=== PATIENT | male | born 1985 | race Caucasian/White ===

== ENCOUNTER 2021-07-23 08:27 | Outpatient (CLI) | payer SELFPAY ==
[2021-07-23 09:41] LABS: HF Add Manual Diff No
[2021-07-23 09:45] LABS: Basophils # 0.1 10^3/uL (0.0-0.1); Basophils % 0.8 %; Eosinophils # 0.2 10^3/uL (0.0-0.8); Eosinophils % 1.9 %; Hematocrit 47.5 % (42.0-52.0); Hemoglobin 16.4 g/dL (11.7-16.6); Lymphocytes % 33.7 %; Mean Corpuscular HGB Conc 34.5 g/dL (30.0-36.0); Mean Corpuscular Hemoglobin 31.8 pg (28.0-34.0); Mean Corpuscular Volume 92.2 fl (80-94); Mean Platelet Volume 9.6 fL (7.4-10.4); Monocytes # 0.5 10^3/uL (0.2-0.9); Monocytes % 5.2 %; Neutrophils # 5.21 10^3/uL (1.8-7.7); Neutrophils % 57.6 %; Nucleated Red Blood Cells % 0 %; Platelet Count 295 10^3/cmm (130-400); Red Blood Count 5.15 10^6/uL (4.1-5.3); Red Cell Distribution Width 13.2 % (12.1-15.1)
[2021-07-23 10:49] LABS: Alanine Aminotransferase 24 U/L (0-41); Albumin Level 4.7 g/dL (3.5-5.2); Alkaline Phosphatase 72 IU/L (40-130); Aspartate Amino Transferase 16 U/L (0-40); Blood Urea Nitrogen 16 mg/dL (6-20); Calcium 9.3 mg/dL (8.5-10.5); Carbon Dioxide 25 mmol/L (22-29); Chloride 103 mmol/L (98-107); Cholesterol 242 mg/dL (0-200); Globulin 2.6 g/dL (1.3-4.6); Glomerular Filtration Rate 109.4 mL/min (90-130); Glucose 114 mg/dL (65-115); HDL Cholesterol 41 mg/dL (60-100); Osmolality Calculated 292 mOsm/kg (285-295); Sodium 140 mmol/L (136-145); Total Bilirubin 0.3 mg/dL (0.15-1.2); Total Protein 7.3 g/dL (6.6-8.7); Triglycerides 502 mg/dL (0-150)
[2021-07-23 11:09] LABS: Estmated Average Glucose 100; Hemoglobin A1C 5.1 % (4.0-6.0)
[2021-07-23 11:27] LABS: LDL Cholesterol Direct 143 mg/dL (0-100)
== END 2021-07-23 08:28 | disposition home or self-care (01) ==
PROVIDERS: Visit Provider Dermatology
DX: Z01.89 Encounter for other specified special examinations (principal)
CPT/HCPCS: 83721

== ENCOUNTER 2021-10-15 07:50 | Outpatient (CLI) | payer SELFPAY ==
[2021-10-15 08:06] LABS: HF Add Manual Diff No
[2021-10-15 08:17] LABS: Basophils # 0.1 10^3/uL (0.0-0.1); Basophils % 0.9 %; Eosinophils # 0.1 10^3/uL (0.0-0.8); Eosinophils % 1.5 %; Hematocrit 47.1 % (42.0-52.0); Lymphocytes # 2.8 10^3/uL (0.8-4.8); Lymphocytes % 37.8 %; Mean Corpuscular Hemoglobin 31.4 pg (28.0-34.0); Mean Corpuscular Volume 92.5 fl (80-94); Mean Platelet Volume 9.5 fL (7.4-10.4); Monocytes # 0.5 10^3/uL (0.2-0.9); Monocytes % 6.5 %; Neutrophils # 3.94 10^3/uL (1.8-7.7); Neutrophils % 52.9 %; Nucleated Red Blood Cells % 0 %; Platelet Count 261 10^3/cmm (130-400); Red Blood Count 5.09 10^6/uL (4.1-5.3); Red Cell Distribution Width 12.4 % (12.1-15.1); White Blood Count 7.4 10^3/uL (4.0-10.0)
[2021-10-15 08:48] LABS: Alanine Aminotransferase 18 U/L (0-41); Albumin Level 4.6 g/dL (3.5-5.2); Alkaline Phosphatase 61 IU/L (40-130); Anion Gap 16.3 (5-19); Aspartate Amino Transferase 16 U/L (0-40); Blood Urea Nitrogen 15 mg/dL (6-20); Calcium 8.8 mg/dL (8.5-10.5); Carbon Dioxide 24 mmol/L (22-29); Chloride 106 mmol/L (98-107); Chol HDL Ratio 5.85 mg/dL (1.0-5.00); Cholesterol 234 mg/dL (0-200); Globulin 2.3 g/dL (1.3-4.6); Glomerular Filtration Rate 84.5 mL/min (90-130); Glucose 100 mg/dL (65-115); HDL Cholesterol 40 mg/dL (60-100); LDL Cholesterol Calculated 139 mg/dL (50-129); LDL HDL Ratio 3.48 RATIO (0.00-3.22); Osmolality Calculated 295 mOsm/kg (285-295); Potassium 4.3 mmol/L (3.5-5.1); Sodium 142 mmol/L (136-145); Thyroid Stimulating Hormone 1.67 uIU/mL (0.27-4.20); Total Bilirubin 0.3 mg/dL (0.15-1.2); Total Protein 6.9 g/dL (6.6-8.7); Triglycerides 277 mg/dL (0-150)
[2021-10-15 09:34] LABS: Estmated Average Glucose 103; Hemoglobin A1C 5.2 % (4.0-6.0)
== END 2021-10-15 07:51 | disposition home or self-care (01) ==
LOC: LAB 07:52
PROVIDERS: Visit Provider Dermatology
DX: Z01.89 Encounter for other specified special examinations (principal)

== ENCOUNTER 2022-01-14 09:05 | Outpatient (CLI) | payer SELFPAY ==
[2022-01-14 09:21] LABS: Basophils # 0.1 10^3/uL (0.0-0.1); Basophils % 0.8 %; Eosinophils # 0.2 10^3/uL (0.0-0.8); Eosinophils % 1.8 %; Hematocrit 48.1 % (42.0-52.0); Hemoglobin 16.2 g/dL (11.7-16.6); Lymphocytes # 3.4 10^3/uL (0.8-4.8); Lymphocytes % 39.3 %; Mean Corpuscular HGB Conc 33.7 g/dL (30.0-36.0); Mean Corpuscular Hemoglobin 30.8 pg (28.0-34.0); Mean Corpuscular Volume 91.4 fl (80-94); Mean Platelet Volume 9.2 fL (7.4-10.4); Monocytes # 0.5 10^3/uL (0.2-0.9); Neutrophils # 4.44 10^3/uL (1.8-7.7); Neutrophils % 51.7 %; Nucleated Red Blood Cells % 0 %; Platelet Count 266 10^3/cmm (130-400); Red Blood Count 5.26 10^6/uL (4.1-5.3); Red Cell Distribution Width 12.5 % (12.1-15.1); White Blood Count 8.6 10^3/uL (4.0-10.0)
[2022-01-14 09:40] LABS: Estmated Average Glucose 105; Hemoglobin A1C 5.3 % (4.0-6.0)
[2022-01-14 09:44] LABS: Alanine Aminotransferase 24 U/L (0-41); Albumin Level 4.6 g/dL (3.5-5.2); Alkaline Phosphatase 66 IU/L (40-130); Anion Gap 16.5 (5-19); Aspartate Amino Transferase 20 U/L (0-40); Blood Urea Nitrogen 17 mg/dL (6-20); Calcium 9.7 mg/dL (8.5-10.5); Carbon Dioxide 27 mmol/L (22-29); Chloride 104 mmol/L (98-107); Chol HDL Ratio 4.98 mg/dL (1.0-5.00); Cholesterol 214 mg/dL (0-200); Globulin 2.9 g/dL (1.3-4.6); Glomerular Filtration Rate 108.8 mL/min (90-130); Glucose 119 mg/dL (65-115); HDL Cholesterol 43 mg/dL (60-100); LDL Cholesterol Calculated 111 mg/dL (50-129); LDL HDL Ratio 2.58 RATIO (0.00-3.22); Osmolality Calculated 299 mOsm/kg (285-295); Potassium 4.5 mmol/L (3.5-5.1); Sodium 143 mmol/L (136-145); Total Bilirubin 0.4 mg/dL (0.15-1.2); Total Protein 7.5 g/dL (6.6-8.7); Triglycerides 298 mg/dL (0-150)
== END 2022-01-14 09:06 | disposition home or self-care (01) ==
PROVIDERS: Visit Provider Dermatology
DX: Z01.89 Encounter for other specified special examinations (principal)
CPT/HCPCS: 80053; 80061; 83036; 85025

== ENCOUNTER 2023-09-27 15:18 | Emergency (ER) | payer MEDICAID, SELFPAY ==
[2023-09-27 15:32] VITALS: BP 136/85; PULSE 69; TEMP 37; O2SAT 99; BMI 26.5
--- NOTE | 2023-09-27 17:34 | PC.NURSE ---
NURSE ASSUMED CARE AT 1730
[2023-09-27 17:40] VITALS: RESP 17
[2023-09-27] MEDS: ondansetron 2 mg/ML SDV 2 mL 4 MG IVP (17:40)
[2023-09-27] MEDS: fentaNYL 50 mcg/mL INJ 2mL IVP ×2 (17:40→18:35)
[2023-09-27] MEDS: sodium chloride 0.9% 1,000 ML 999 ML IV ×2 (17:41→18:39)
[2023-09-27 17:48] VITALS: PULSE 62; TEMP 36.9; O2SAT 99
[2023-09-27 17:50] LABS: Basophils # 0.1 10^3/uL (0.0-0.1); Basophils % 0.3 %; Eosinophils % 0.1 %; Hematocrit 46.6 % (37-53); Lymphocytes # 1.5 10^3/uL (0.8-4.8); Lymphocytes % 8.8 %; Mean Corpuscular HGB Conc 34.8 g/dL (30-55); Mean Corpuscular Hemoglobin 31.5 pg (27-33); Mean Corpuscular Volume 90.7 fl (82-101); Mean Platelet Volume 9.3 fL (7.4-10.4); Monocytes # 0.9 10^3/uL (0.2-0.9); Neutrophils % 85.5 %; Nucleated Red Blood Cells % 0 %; Platelet Count 267 10^3/cmm (157-399); Red Blood Count 5.14 10^6/uL (3.85-5.65); Red Cell Distribution Width 12.7 % (12.1-15.1); White Blood Count 17.44 10^3/uL (3.29-11.43)
--- NOTE | 2023-09-27 17:53 | CTR_ITS ---
PROCEDURE INFORMATION: Exam: CT Abdomen And Pelvis With Contrast Exam date and time: 09/27/2023 6:04 PM Age: 37 years old Clinical indication: Abdominal pain; Prior surgery; Surgery date: 6+ months; Surgery type: Inguinal hernia; Patient HX: Llq pain with n/v. Wbc of 17k. ; Additional info: Abd pain and leukocytosis TECHNIQUE: Imaging protocol: Computed tomography of the abdomen and pelvis with contrast. Radiation optimization: All CT scans at this facility use at least one of these dose optimization techniques: automated exposure control; mA and/or kV adjustment per patient size (includes targeted exams where dose is matched to clinical indication); or iterative reconstruction. Contrast material: OMNI 350; Contrast volume: 100 ml; Contrast route: INTRAVENOUS (IV); REPORTING DATA: Count of CT and Cardiac NM exams in prior 12 months: This patient has received 0 known CTs and 0 known cardiac nuclear medicine studies in the 12 months prior to the current study. COMPARISON: No relevant prior studies available. RADIATION DOSE METRICS: Total DLP (mGy-cm): 646.53 FINDINGS: Liver: Normal. No mass. Gallbladder and bile ducts: Normal. No calcified stones. No ductal dilation. Pancreas: Normal. No ductal dilation. Spleen: Multiple punctate calcifications in the spleen consistent with prior granulomatous infection. Adrenal glands: Normal. No mass. Kidneys and ureters: There is an obstructing 6 mm stone in the distal left ureter with upstream hydroureter and mild hydronephrosis. Stomach and bowel: Unremarkable. No obstruction. No mucosal thickening. Appendix: No evidence of appendicitis. Intraperitoneal space: Unremarkable. No free air. No significant fluid collection. Vasculature: Unremarkable. No abdominal aortic aneurysm. Lymph nodes: Unremarkable. No enlarged lymph nodes. Urinary bladder: Unremarkable as visualized. Reproductive: Unremarkable as visualized. Bones/joints: Unremarkable. No acute fracture. Soft tissues: Unremarkable. CT/CT abdomen pelvis w con* [id number] IMPRESSION: There is an obstructing 6 mm stone in the distal left ureter with upstream hydroureter and mild hydronephrosis.
[2023-09-27 18:05] LABS: Lactic Sepsis W/Reflex 1.5 mmol/L (0.5-2.2)
[2023-09-27] MEDS: iohexol 350 mg/mL 500 mL Btl (per mL) IV (18:07)
[2023-09-27 18:09] LABS: Alanine Aminotransferase 19 U/L (0-41); Albumin Level 4.6 g/dL (3.5-5.2); Alkaline Phosphatase 74 U/L (40-130); Anion Gap 17.3 (5-19); Aspartate Amino Transferase 16 U/L (0-40); Blood Urea Nitrogen 16 mg/dL (6-20); Calcium 9.5 mg/dL (8.5-10.5); Carbon Dioxide 25 mmol/L (22-29); Chloride 102 mmol/L (98-107); Globulin 2.8 g/dL (1.3-4.6); Glomerular Filtration Rate 52.4 mL/min (90-130); Glucose 122 mg/dL (65-115); Lipase 19 U/L (13-60); Osmolality Calculated 292 mOsm/kg (285-295); Potassium 4.3 mmol/L (3.5-5.1); Sodium 140 mmol/L (136-145); Total Bilirubin 0.4 mg/dL (0.15-1.2); Total Protein 7.4 g/dL (6.6-8.7)
[2023-09-27 18:35] VITALS: RESP 20; O2SAT 99
[2023-09-27 18:38] LABS: Glucose Urine UA Norm (Normal); Ketones Urine 2+ (Negative); Protein Urine 1+ (Negative); Urine Appearance Cloudy (CLEAR); Urine Color Yellow (Yellow); pH Urine 6 (5-7)
[2023-09-27 18:39] LABS: Add Urine Culture? Yes; Add Urine Microscopic? YES; Bilirubin Urine Neg (Negative); Blood Urine 3+ (Negative); Leukocyte Esterase Urine Trace (Negative); Mucus Urine 3+ /hpf; Nitrate Urine Negative (Negative); RBC Urine >100 /hpf (0-2); Squamous Epithelial Cell Urine RARE /hpf (0-5); Urobilinogen Urine 1 mg/dL (Negative); WBC Urine 0-4 /hpf (0-5)
--- NOTE | 2023-09-27 18:53 | ED_ITS ---
HPI - Abdominal Pain General: Chief Complaint: Abdominal Pain Stated Complaint: abd pain/back NV Time Seen by Provider: 09/27/23 17:12 History of Present Illness: Patient is a 37-year-old male that presents with acute onset of left lower quadrant abdominal pain, nausea vomiting, possible constipation. He Denies any fever or chills, right-sided abdominal pain, diarrhea. He denies any medical or surgical history. Associated Symptoms: Reports nausea and vomiting; Denies bloating, chills, constipation, GI cramping, diarrhea, dysuria, fever(s), hematochezia, hematuria and melena Review of Systems 2 General: Reports: 10 or more systems reviewed and unremarkable except in HPI and below Const: Reports: change in appetite; Denies: fever(s), chills, change in weight, fatigue or malaise Eyes: Denies: change in vision, eye discomfort, eye discharge or eye redness ENMT: Denies: throat pain, enlarged tonsils, odynophagia, hoarseness, ear or mastoid pain, ear discharge, change in hearing, tinnitus, nasal discharge, nasal congestion, post nasal drip or sinus pain Card: Denies: chest pain, palpitations, irregular heart rhythm, edema, dyspnea on exertion, orthopnea or leg pain with exertion Resp: Denies: dyspnea, productive cough, non-productive cough, wheezing, stridor or chest congestion GI: Reports: abdominal pain, nausea and vomiting; Denies: dysphagia, diarrhea, constipation, bloating, GI cramping, hematochezia or melena : Denies: flank pain, dysuria, urinary frequency, urinary urgency, urinary hesitancy, oliguria or hematuria Musc: Denies: neck pain, back pain, extremity pain, joint pain, joint swelling, joint redness, joint warmth or muscle weakness Skin/Breast: Denies: rash, pruritus, erythema, photosensitivity or new lesions Neuro: Denies: headache(s), numbness in extremities, weakness in extremities, sensory changes, lack of coordination, difficulty walking, frequent falls, dizziness, confusion, Slurred speech present, difficulty communicating thoughts, seizure-like activity or involuntary movements Endo: Denies: polyuria, polydipsia or tired all the time Hugo/Lymph: Denies: easy bruising or easy bleeding Physical Exam Const: COMMON NORMALS: no acute distress, patient oriented x3 and alert GENERAL APPEARANCE: cooperative ORIENTATION/CONSCIOUSNESS: Yes awake, Yes oriented to person, Yes oriented to place and Yes oriented to time HENMT: COMMON NORMALS: normocephalic and atraumatic HEAD & SCALP: normocephalic and atraumatic FACE & SINUS: normal facial exam MOUTH: Normal oral and palatal mucosa present THROAT: posterior oropharynx normal Eye: COMMON NORMALS: Equal, round and reactive pupils present, EOMs intact bilaterally, conjunctivae normal and no scleral icterus GENERAL EYE: appearance normal, both eyes and all related structures ALIGNMENT: Yes alignment normal PERIORBITAL: periorbital findings normal CONJUNCTIVA: Yes conjunctivae normal PUPIL: Yes Equal, round and reactive pupils present Neck/C-Spine: COMMON NORMALS: full ROM GENERAL: Yes normal visual inspection Lymph: LYMPHATIC: no lymphadenopathy noted Chest: COMMONS NORMALS: normal inspection of the chest Breast/axilla inspection: Yes no chest deformity, asymmetry, normal contours, no nodules, masses, tenderness Resp: COMMON NORMALS: normal respiratory effort, No retractions, No use of accessory muscles and clear to auscultation bilaterally EFFORT & INSPECTION: Yes able to speak in complete sentences and Yes symmetric chest movement AUSCULTATION: clear to auscultation bilaterally Cardio: COMMON NORMALS: regular rate, regular rhythm and Peripheral pulses 2+ throughout RATE: regular rate RHYTHM: regular rhythm PERIPHERAL PULSES: Peripheral pulses 2+ throughout GI: COMMON NORMALS: Soft to palpation and No hepatosplenomegaly present INSPECTION: Yes normal to inspection AUSCULTATION: Yes normoactive bowel sounds PALPATION: Yes Soft to palpation, Yes Tenderness to palpation present (GI) Details: LLQ and LUQ and Yes No hepatosplenomegaly present RECTAL EXAM: Yes deferred : BLADDER/KIDNEY EXAM: Yes CVA tenderness on the left Back/Pelvis: GENERAL BACK: Yes CVA tenderness Extremity: COMMON NORMALS: normal to inspection GENERAL: Yes normal exam except as noted Neuro: COMMON NORMALS: patient oriented x3 SENSORIUM/ORIENTATION: Yes alert, Yes oriented to person, Yes oriented to place and Yes oriented to time CRANIAL NERVES: Yes CN normal except as noted Psych: COMMON NORMALS: mental status grossly normal, Normal thought process present, cooperative, activity/motor behavior normal, denies homicidal ideation and denies suicidal ideation THOUGHT PROCESS: Normal thought process present Skin: COMMON NORMALS: no rashes or lesions noted, no wounds and turgor normal GENERAL SKIN EXAM: no rashes or lesions noted and turgor normal Course Vital Signs: Vital signs: Vital Signs Temperature 98.5 F 09/27/23 17:48 Pulse Rate 62 09/27/23 17:48 Respiratory Rate 20 H 09/27/23 18:35 Blood Pressure 136/85 09/27/23 15:32 Pulse Oximetry 99 09/27/23 18:35 Oxygen Delivery Me thod Room Air 09/27/23 17:48 MDM - Abdominal Pain Medical Decision Making Patient is a 37-year-old man with left upper and left lower quadrant abdominal pain, nausea vomiting. He did have a bowel movement today but it was small and he does not feel that he evacuated his bowels. He has been vomiting for greater than 12 hours. Differential diagnosis includes, patient, obstruction, colitis, diverticulitis Urinary tract infection or kidney stone as differentials as well In the emergency department I obtained a CBC, CMP, lipase and urinalysis. I was going to obtain a KUB; however, patient had a white count of 17,000 so I changed this to a CT abdomen pelvis with contrast. Patient has a 6 mm stone in the distal left ureter with mild hydronephrosis. I initially gave him 1 L normal saline but changed it to a total of 2 L. He was treated with fentanyl Zofran and Reglan. His creatinine was mildly elevated 1.5. He does not have baseline kidney dysfunction. I did give him 30 mg dose of Toradol to help with pain. I spoke with my attending, Dr. Rolle. There is only mild hydronephrosis so this patient can be managed at home. We will need to arrange outpatient follow-up. He was given Flomax here in the emergency department and will discharge home with pain meds, antiemetics and Flomax. Patient she is to follow-up at [facility]. Case management consult was placed to assist in arranging. Lab Data 09/27/23 17:44 09/27/23 17:44 Labs/Radiology: Radiology Impressions Abdomen/Pelvis CT 09/27/23 17:53 IMPRESSION: There is an obstructing 6 mm stone in the distal left ureter with upstream hydroureter and mild hydronephrosis. Laboratory Results WBC 17.44 10^3/uL (3.29-11.43) H 09/27/23 17:44 RBC 5.14 10^6/uL (3.85-5.65) 09/27/23 17:44 Hgb 16.20 g/dL (11.27-16.99) 09/27/23 17:44 Hct 46.6 % (37-53) 09/27/23 17:44 MCV 90.7 fl (82-101) 09/27/23 17:44 MCH 31.5 pg (27-33) 09/27/23 17:44 MCHC 34.8 g/dL (30-55) 09/27/23 17:44 RDW 12.7 % (12.1-15.1) 09/27/23 17:44 Plt Count 267 10^3/cmm (157-399) 09/27/23 17:44 MPV 9.3 fL (7.4-10.4) 09/27/23 17:44 Neut % (Auto) 85.5 % 09/27/23 17:44 Lymph % (Auto) 8.8 % 09/27/23 17:44 Desha % (Auto) 5.0 % 09/27/23 17:44 Eos % (Auto) 0.1 % 09/27/23 17:44 Baso % (Auto) 0.3 % 09/27/23 17:44 Neut # (Auto) 14.90 10^3/uL (1.8-7.7) H 09/27/23 17:44 Lymph # (Auto) 1.5 10^3/uL (0.8-4.8) 09/27/23 17:44 Desha # (Auto) 0.9 10^3/uL (0.2-0.9) 09/27/23 17:44 Eos # (Auto) 0.0 10^3/uL (0.0-0.8) 09/27/23 17:44 Baso # (Auto) 0.1 10^3/uL (0.0-0.1) 09/27/23 17:44 Nucleated RBC % (auto) 0 % 09/27/23 17:44 Nucleated RBCs # 0.0 /100WBC 09/27/23 17:44 Sodium 140 mmol/L (136-145) 09/27/23 17:44 Potassium 4.3 mmol/L (3.5-5.1) 09/27/23 17:44 Chloride 102 mmol/L (98-107) 09/27/23 17:44 Carbon Dioxide 25 mmol/L (22-29) 09/27/23 17:44 Anion Gap 17.3 (5-19) 09/27/23 17:44 BUN 16 mg/dL (6-20) 09/27/23 17:44 Creatinine 1.5 mg/dL (0.7-1.2) H 09/27/23 17:44 GFR Calculation 52.4 mL/min (90-130) L 09/27/23 17:44 Glucose 122 mg/dL (65-115) H 09/27/23 17:44 Calculated Osmolality 292 mOsm/kg (285-295) 09/27/23 17:44 Lactic Acid 1.5 mmol/L (0.5-2.2) 09/27/23 17:44 Calcium 9.5 mg/dL (8.5-10.5) 09/27/23 17:44 Total Bilirubin 0.4 mg/dL (0.15-1.2) 09/27/23 17:44 AST 16 U/L (0-40) 09/27/23 17:44 ALT 19 U/L (0-41) 09/27/23 17:44 Alkaline Phosphatase 74 U/L (40-130) 09/27/23 17:44 Total Protein 7.4 g/dL (6.6-8.7) 09/27/23 17:44 Albumin 4.6 g/dL (3.5-5.2) 09/27/23 17:44 Globulin 2.8 g/dL (1.3-4.6) 09/27/23 17:44 Lipase 19 U/L (13-60) 09/27/23 17:44 Urine Color Yellow (Yellow) 09/27/23 18:20 Urine Appearance Cloudy (CLEAR) A 09/27/23 18:20 Urine pH 6 (5-7) 09/27/23 18:20 Ur Specific Cherry 1.020 (1.005-1.030) 09/27/23 18:20 Urine Protein 1+ (Negative) H 09/27/23 18:20 Urine Glucose (UA) Norm (Normal) 09/27/23 18:20 Urine Ketones 2+ (Negative) H 09/27/23 18:20 Urine Blood 3+ (Negative) H 09/27/23 18:20 Urine Nitrate Negative (Negative) 09/27/23 18:20 Urine Bilirubin Neg (Negative) 09/27/23 18:20 Urine Urobilinogen 1 mg/dL (Negative) H 09/27/23 18:20 Ur Leukocyte Esterase Trace (Negative) H 09/27/23 18:20 Urine RBC >100 /hpf (0-2) H 09/27/23 18:20 Urine WBC 0-4 /hpf (0-5) H 09/27/23 18:20 Ur Squamous Epith Cells Rare /hpf (0-5) 09/27/23 18:20 Amorphous Sediment Not Reportable 09/27/23 18:20 Urine Bacteria None /hpf (NONE) 09/27/23 18:20 Urine Mucus 3+ /hpf 09/27/23 18:20 All radiology interpretation(s) finalized by discharge Discharge Plan Discharge Patient Disposition: Home Clinical Impression: Calculus of kidney, Abdominal pain, Hydronephrosis, ALFREDO (acute kidney injury) Condition: Stable Prescriptions: New oxycodone-acetaminophen [Percocet] 5-325 mg tablet 1 tab PO Q6H PRN (Reason: pain) Qty: 12 0RF ondansetron 4 mg tablet,disintegrating 4 mg PO Q8H PRN (Reason: nausea and vomiting) Qty: 20 0RF tamsulosin [Flomax] 0.4 mg capsule 0.4 mg PO DAILY Qty: 30 0RF Discharge Orders: Discharge ED (Routine); Ordered 09/27/23 Ordered By: Dominic Chaudhari Discharge Diet: Advance as tolerated Discharge Activity: Resume usual activity Patient Instructions: Kidney Stones (ED), Abdominal Pain (ED), Opioid Safety, Pain Management Activity Restrictions/Additional Instructions: Strain all urine. Take medications as prescribed Follow-up with urology as discussed. We have asked her case management to assist in arranging this. They will contact you with point of contact for urology Please return to the emergency department for new, concerning, worsening symptoms Coding Level of Care Code ED Practice Professional for Sarah Del Cid
[2023-09-27] MEDS: metoclopramide 5 mg/mL SDV 2 mL 10 MG IVP (19:04)
[2023-09-27] MEDS: ketorolac 30 mg/mL INJ IVP (19:07)
[2023-09-27] MEDS: tamsulosin 0.4 mg Capsule 0.8 MG PO (19:08)
--- NOTE | 2023-10-01 09:31 | DCPLANNER ---
Urology referral was faxed to [facility] at 0932 on 10/01/23. Clinic to contact this patient. Fax number sent to: [phone]. Phone number to clinic: [phone]
== END 2023-09-27 19:46 | disposition home or self-care (01) ==
PROVIDERS: Emergency Provider Nurse Practitioner
DX: N13.2 Hydronephrosis with renal and ureteral calculous obstruction (principal); N17.9 Acute kidney failure, unspecified
CPT/HCPCS: 74177; 80053; 81001; 83605; 83690; 85025; 87086; 96361; 96374; 96375; 96376; 99285; J1885; J2405; J2765; J3010; J7030; Q9967